=== PATIENT | male | born 1990 | race Caucasian/White ===

== ENCOUNTER 2018-01-15 20:57 | Emergency (ER) | payer BC ==
[2018-01-15 21:15] VITALS: BP 140/76; PULSE 89; TEMP 98.2; BMI 30.6
--- NOTE | 2018-01-15 21:54 | PDOC ---
History of Present Illness - General History Source: Patient Exam Limitations: No Limitations <Jayshree Sampson - Last Filed: 01/15/18 21:54> <Olga Lucia - Last Filed: 01/16/18 02:36> - General Chief Complaint: Irregular Heart Beat Stated Complaint: HEART FLUTTER Time Seen by Provider: 01/15/18 21:12 - History of Present Illness Initial Comments: 01/15/18 21:54 The patient is a 27 year old male with no significant past medical history who presents to the ER complaining of intermittent, irregular heartbeat for the past three days. The patient states the irregular heartbeat became more noticeable today evening prompting him to come to the ER for an evaluation. Patient reports he was lying in bed when he felt the irregular heartbeat and asked his mother to check his pulse. Patient denies using more caffeine than usual. Patient does endorse binge drinking this weekend. Patient states he may also be stressed as he is in the process of moving out of his home. The patient denies abdominal pain, leg swelling, chest pain, shortness of breath , headache, and dizziness. Denies fever, chills, nausea, vomit, diarrhea, and constipation. Denies dysuria, frequency, urgency, and hematuria. Allergies: NKA Past surgical history: Knee surgery, submaxillary tumor removal Social history: Patient drinks a few times a week. Smokes a pack a day. Denies drug use. PCP: Dr. Danielson (Jayshree Sampson) Past History <Jayshree Sampson - Last Filed: 01/15/18 21:54> - Past Medical History COPD: No - Suicide/Smoking/Psychosocial Hx Smoking History: Never smoked Have you smoked in the past 12 months: No Number of Cigarettes Smoked Daily: 0 Information on smoking cessation initiated: No Hx Alcohol Use: No Drug/Substance Use Hx: No Substance Use Type: None <Olga Lucia - Last Filed: 01/16/18 02:36> - Past Medical History Allergies/Adverse Reactions: Allergies Allergy/AdvReac Type Severity Reaction Status Date / Time No Known Allergies Allergy Unverified 01/15/18 21:01 Home Medications: Ambulatory Orders NK [No Known Home Medication] 01/15/18 Review of Systems - Review of Systems Able to Perform ROS?: Yes <Jayshree Sampson - Last Filed: 01/15/18 21:54> <Olga Lucia - Last Filed: 01/16/18 02:36> - Review of Systems Comments:: 01/15/18 21:54 ADULT ROS GENERAL/CONSTITUTIONAL: No fever or chills. No weakness. HEAD, EYES, EARS, NOSE AND THROAT: No change in vision. No ear pain or discharge. No sore throat. CARDIOVASCULAR: (+) Irregular heartbeat. No chest pain or shortness of breath. RESPIRATORY: No cough, wheezing, or hemoptysis. GASTROINTESTINAL: No nausea, vomiting, diarrhea or constipation. GENITOURINARY: No dysuria, frequency, or change in urination. MUSCULOSKELETAL: No joint or muscle swelling or pain. No neck or back pain. SKIN: No rash NEUROLOGIC: No headache, vertigo, loss of consciousness, or change in strength/ sensation. ENDOCRINE: No increased thirst. No abnormal weight change. HEMATOLOGIC/LYMPHATIC: No anemia, easy bleeding, or history of blood clots. ALLERGIC/IMMUNOLOGIC: No hives or skin allergy. (Jayshree Sampson) *Physical Exam <Jayshree Sampson - Last Filed: 01/15/18 21:54> <Olga Lucia - Last Filed: 01/16/18 02:36> - Vital Signs Last Vital Signs Temp Pulse Resp BP Pulse Ox 98.2 F 89 14 140/76 100 01/15/18 21:02 01/15/18 21:02 01/15/18 21:02 01/15/18 21:02 01/15/18 21:02 - Physical Exam Comments: 01/15/18 21:54 ADULT EXAM GENERAL: Awake, alert, and fully oriented, in no acute distress HEAD: No signs of trauma EYES: PERRLA, EOMI, sclera anicteric, conjunctiva clear ENT: Auricles normal inspection, hearing grossly normal, nares patent, oropharynx clear without exudates. Moist mucosa NECK: Normal ROM, supple, no lymphadenopathy, JVD, or masses LUNGS: Breath sounds equal, clear to auscultation bilaterally. No wheezes, and no crackles HEART: Regular rate and rhythm, normal S1 and S2, no murmurs, rubs or gallops ABDOMEN: Soft, nontender, normoactive bowel sounds. No guarding, no rebound. No masses EXTREMITIES: Normal range of motion, no edema. No clubbing or cyanosis. No cords, erythema, or tenderness NEUROLOGICAL: Cranial nerves II through XII grossly intact. Normal speech, normal gait SKIN: Warm, Dry, normal turgor, no rashes or lesions noted. (Jayshree Sampson) ED Treatment Course - LABORATORY CBC & Chemistry Diagram: 01/15/18 22:00 01/15/18 22:06 <Olga Lucia - Last Filed: 01/16/18 02:36> - ADDITIONAL ORDERS Additional order review: Laboratory Results 01/15/18 01/15/18 22:06 22:06 Sodium 136 Potassium 3.6 Chloride 103 Carbon Dioxide 26 Anion Gap 7 L BUN 18 Creatinine 1.0 Creat Clearance w eGFR > 60 Random Glucose 113 H Calcium 8.8 Total Bilirubin 0.9 AST 21 ALT 21 Alkaline Phosphatase 70 Creatine Kinase 278 Creatine Kinase Index 0.5 CK-MB (CK-2) 1.6 Troponin I < 0.03 Total Protein 7.0 Albumin 4.0 01/15/18 22:00 RBC 4.95 MCV 98.0 H MCHC 34.1 RDW 12.2 MPV 9.0 Neutrophils % 69.7 Lymphocytes % 19.5 Monocytes % 7.5 Eosinophils % 2.5 Basophils % 0.8 Medical Decision Making <Jayshree Sampson - Last Filed: 01/15/18 21:54> <Olga Lucia - Last Filed: 01/16/18 02:36> - Medical Decision Making 01/15/18 21:54 Documentation prepared by Jayshree Sampson, acting as senior medical technologist for Olga Lucia MD. (Jayshree Sampson) Documentation has been prepared under my direction and personally reviewed by me in its entirety. I attest that this documented accurately reflects all work, treatment, procedures and medical decision making performed by me. As noted above, this otherwise healthy 27-year-old man presents with a few day history of palpitations: Patient describes sensation as "dropped beats" not as accelerated rhythm or persistently irregular rhythm. No associated symptoms described. No previous history of palpitations. Patient drinks only 1 cup of coffee a day and no other ingestion of caffeine or other stimulants. Cardiac risk factor of smoking. Onset of palpitations had occurred after drinking heavily during the weekend. Exam as noted, essentially normal. 12-lead electrocardiogram is performed and interpreted by me: Sinus rhythm at 89 bpm. Intervals, wave forms and axis are all normal. There is evidence of sinus arrhythmia but no other ectopy or regular rhythm. CBC/chemistry profile/troponin level drawn. Other than mildly elevated white blood cell count (11,200) and minimal prerenal azotemia (BUN 18/Cre1.0), laboratory evaluation is normal with no abnormalities of electrolytes or liver functions. Troponin is not elevated. Patient was kept on cardiac monitoring during the entire time he was in the emergency room. During this time, there was no evidence of arrhythmia/ectopy. Patient has been advised to follow-up with his PMD (), who is also a information security specialist. Even though no evidence of arrhythmias found during his ER visit , he may need Holter monitoring to fully rule out episodes of arrhythmia. Meanwhile, the patient's been advised to drink plenty of water, to avoid smoking and excessive alcohol use. He also should limit the amount of caffeine/ stimulants that he consumes. He should return to the ER feet has a persistent sensation of palpitations or develops chest pain/shortness of breath. (Olga Lucia) *DC/Admit/Observation/Transfer <Jayshree Sampson - Last Filed: 01/15/18 21:54> <Olga Lucia - Last Filed: 01/16/18 02:36> Diagnosis at time of Disposition: History of palpitations - Discharge Dispostion Disposition: HOME Condition at time of disposition: Stable - Referrals Referrals: Julián Danielson MD [Primary Care Provider] - - Patient Instructions Printed Discharge Instructions: DI for Palpitations Additional Instructions: drink plenty of water avoid smoking avoid excessive caffeine or alcohol consumption return to ER if you have prolonged palpitations or you experience chest pain/ shortness of breath Followup with Dr Danielson within 4-5 days - Post Discharge Activity
[2018-01-15 22:14] LABS: BASO % 0.8 % (0-2.0); EOS % 2.5 % (0-4.5); HEMATOCRIT 48.5 % (35.4-49); HEMOGLOBIN 16.5 GM/dl (11.7-16.9); LYMPH % 19.5 % (8-40); MCH 33.4 pg (25.7-33.7); MCHC 34.1 g/dl (32.0-35.9); MONO % 7.5 % (3.8-10.2); NEUT % 69.7 % (42.8-82.8); PLATELET COUNT 260 K/MM3 (134-434); RBC 4.95 M/mm3 (4.00-5.60); RDW 12.2 % (11.9-15.9); WHITE BLOOD COUNT 11.2 K/mm3 (4.0-10.8)
[2018-01-15 22:30] LABS: ALK PHOS 70 U/L (32-92); ANION GAP 7 MMOL/L (8-16); BILIRUBIN,TOTAL 0.9 mg/dl (0.2-1.0); BLOOD UREA NITROGEN 18 mg/dl (7-18); CALCIUM 8.8 mg/dl (8.4-10.2); CHLORIDE 103 mmol/L (98-107); CO2 26 mmol/L (22-28); GLUCOSE,RANDOM 113 mg/dl (74-106); POTASSIUM 3.6 mmol/L (3.5-5.1); SGOT/AST 21 U/L (10-42); SGPT/ALT 21 U/L (10-40); SODIUM 136 mmol/L (136-145)
--- NOTE | 2018-01-19 22:27 | EKG ---
Test Reason : Blood Pressure : / mmHG Vent. Rate : 085 BPM Atrial Rate : 085 BPM P-R Int : 134 ms QRS Dur : 090 ms QT Int : 354 ms P-R-T Axes : 040 046 049 degrees QTc Int : 421 ms NORMAL SINUS RHYTHM WITH SINUS ARRHYTHMIA NORMAL ECG NO PREVIOUS ECGS AVAILABLE Confirmed by TRINITY PERSAUD MD ([id number]) on 01/19/2018 10:27:27 PM Referred By: MD KHOURY Confirmed By:TRINITY PERSAUD MD
== END 2018-01-15 22:56 | disposition home or self-care (01) ==
LOC: FER 20:57
DX: R00.2 Palpitations (principal)
CPT/HCPCS: 36415; 80053; 82550; 82553; 84484; 85025; 93005; 99283-25